=== PATIENT | male | born 1960 | race Hispanic/Latino ===

== ENCOUNTER 2019-04-03 20:39 | Emergency (ER) | payer SELFPAY ==
[2019-04-03 22:19] VITALS: BP 124/82
== END 2019-04-03 20:55 | disposition left against medical advice (07) ==
LOC: ED 20:39
DX: R53.1 Weakness (principal); Z53.21 Procedure and treatment not carried out due to patient leaving prior to being seen by health care provider

== ENCOUNTER 2022-07-21 07:31 | Day surgery (SDC) | payer MEDICAID ==
[2022-07-21] MEDS ORDERED: ASPIRIN EC 325 MG TAB PO SCH (08:00)
[2022-07-21] MEDS ORDERED: SODIUM CHLORIDE 0.9% 500 ML 500 ML IV SCH (08:00)
[2022-07-21 08:22] LABS: Basophils # (Auto) 0.1 K/mm3 (0.0-0.1); Basophils % (Auto) 0.8 % (0.0-1.8); Eosinophils # (Auto) 0.2 K/mm3 (0.0-0.4); Eosinophils % (Auto) 2.2 % (0.0-4.3); Hematocrit 37.6 % (35.5-45.6); Hemoglobin 12.1 gm/dl (11.8-15.2); Lymphocytes # (Auto) 1.6 K/mm3 (1.2-5.4); Lymphocytes % (Auto) 20.8 % (13.4-35.0); Mean Corpuscular HGB Conc 32 % (32-34); Mean Corpuscular Volume 96 fl (84-94); Monocytes # (Auto) 0.5 K/mm3 (0.0-0.8); Monocytes % (Auto) 6.5 % (0.0-7.3); Platelet Count 216 K/mm3 (140-440); Red Blood Count 3.91 M/mm3 (3.65-5.03); Red Cell Distribution Width 15.2 % (13.2-15.2)
[2022-07-21 08:31] LABS: INR 0.8 (0.87-1.13); Partial Thromboplastin Time 28.7 Sec. (24.2-36.6)
[2022-07-21 08:33] LABS: Calcium 9.2 mg/dL (8.4-10.2)
[2022-07-21 09:20] VITALS: BP 193/83
--- NOTE | 2022-07-21 10:43 | Event Note ---
Date: 07/21/22 Patient is a 62-year-old man who presented for an outpatient right and left heart catheterization. Precatheterization laboratory exam showed marked renal insufficiency with a BUN of 30 and a creatinine of 1.8. Patient reports no known history of kidney disease, and there are no labs in the hospital system for comparison. Patient is asymptomatic, and presented for elective cardiac procedure. Due to high risk of contrast nephropathy at this time, we have recommended that the procedure is postponed, pending his evaluation by a car pick up driver, followed by precardiac catheterization preparation with 12 to 24 hours of intravenous normal saline before the procedure. Patient affirms understanding and agrees with this recommendation.
--- NOTE | 2022-07-23 17:15 | Electrocardiograph Report ---
[facility] Test Date: 2022-07-21 Test Time: 07:56:18 Pat Name: JEREMIAH SAMUELS Department: Room: Gender: M [employer] Manager: REUBEN : 1960 Requested By: HOLLY KAUR Order Number: [id number] Reading MD: Holly Kaur Measurements Intervals Brandon Rate: 66 P: 72 UT: 145 QRS: 36 QRSD: 96 T: 127 QT: 423 QTc: 444 Interpretive Statements Sinus rhythm Nonspecific T abnormalities, lateral leads No previous ECG available for comparison Electronically Signed On 07-23-2022 17:15:38 EDT by Holly Kaur
== END 2022-07-21 11:15 | disposition home or self-care (01) ==
LOC: CATHLABREC 07:31
PROVIDERS: ATTEND Internal Medicine Cardiovascular Disease
DX: I35.0 Nonrheumatic aortic (valve) stenosis (principal); I10 Essential (primary) hypertension; Z53.8 Procedure and treatment not carried out for other reasons; F17.210 Nicotine dependence, cigarettes, uncomplicated; J44.9 Chronic obstructive pulmonary disease, unspecified; M19.90 Unspecified osteoarthritis, unspecified site; F32.9 Major depressive disorder, single episode, unspecified; Z79.899 Other long term (current) drug therapy; Z98.890 Other specified postprocedural states; Z79.4 Long term (current) use of insulin
CPT/HCPCS: 36415; 80048; 85025; 85610; 85730; 93005; J7040